=== PATIENT | male | born 1995 | race Hispanic/Latino ===

== ENCOUNTER 2024-07-27 15:48 | Emergency (ER) | payer SELFPAY ==
[~2024-07-27] VITALS: Ht 165.1 cm; Wt 47.6 kg
[2024-07-27] MEDS ORDERED: KETOROLAC TROMETHAMINE 30 MG/ML SDV IM ONE (16:25)
[2024-07-27 16:40] LABS: BASO% 0.2 % (0-3); EOS% 0.1 % (0-8); HEMATOCRIT 45.5 % (39.0-50.0); HEMOGLOBIN 16.2 g/dl (14.0-18.0); IMMATURE GRANULOCYTES 0.1 % (0.0-5.0); MEAN CELL VOLUME 84.7 fL CALC (80.0-100.0); MEAN CORPUSCULAR HGB 30.2 pG CALC (26.0-32.0); MEAN CORPUSCULAR HGB CONC 35.6 g/dL CAL (32.0-36.0); MONO% 11.6 % (2-13); NEUT# 6.09 thou/uL (1.82-7.42); RED BLOOD COUNT 5.37 mill/uL (4.70-6.10); RED CELL DISTRI WIDTH 11.7 % (11.5-15.5)
[2024-07-27 16:55] LABS: ANION GAP 17 (6-22 (CALC)); BUN 12 mg/dL (9-20); BUN/CREATININE RATIO 14 (12-20 (CALC)); CARBON DIOXIDE 24 mmol/l (22-30); CHLORIDE 94 mmol/l (95-108); CREATININE 0.9 mg/dL (0.7-1.3); ESTIMATED GFR 119 ML/MIN (>=90 (CALC)); POTASSIUM 3.1 mmol/l (3.5-5.1); SODIUM 132 mmol/l (137-146)
[2024-07-27] MEDS ORDERED: POTASSIUM CHLORIDE 20 MEQ/TAB PO ONE (17:10)
[2024-07-27] MEDS ORDERED: POTASSIUM CHLORIDE 20 MEQ/PKT POWDER PO ONE (17:40)
[2024-07-27] MEDS ORDERED: K-TAB20 MEQ PO (17:42)
[2024-07-27] MEDS ORDERED: ZPAK PO (17:42)
[2024-07-27 17:49] VITALS: BP 114/72
[2024-07-27 18:00] VITALS: BP 106/64
[2024-07-27 18:01] VITALS: BP 114/72
== END 2024-07-27 18:05 | disposition home or self-care (01) | DRG 153 ==
LOC: ED 15:48
PROVIDERS: Family Medicine
DX: J06.9 Acute upper respiratory infection, unspecified (principal); E87.6 Hypokalemia; Z20.822 Contact with and (suspected) exposure to COVID-19

== ENCOUNTER 2024-10-27 09:49 | Emergency (ER) | payer SELFPAY ==
[~2024-10-27] VITALS: Ht 165.1 cm; Wt 65.0 kg
[~2024-10-27 09:49] MED LIST: K-TAB20 MEQ PO; ZPAK PO
[2024-10-27 09:58] VITALS: BP 126/76
[2024-10-27 10:30] VITALS: BP 115/72
[2024-10-27] MEDS ORDERED: Pantoprazole Sodium 40 MG VIAL (Protonix) IV STA (10:46)
[2024-10-27] MEDS ORDERED: SODIUM CHLORIDE 0.9% 1,000 ML IV STA (10:46)
[2024-10-27] MEDS ORDERED: KETOROLAC TROMETHAMINE 30 MG/ML SDV IV STA (10:46)
[2024-10-27] MEDS ORDERED: PROMETHAZINE HCL 25 MG/ML AMP IV STA (10:46)
[2024-10-27] MEDS ORDERED: ONDANSETRON HCl 4 MG/2 ML SDV IV ONE (10:55)
[2024-10-27 11:16] LABS: BASO% 0.1 % (0-3); HEMOGLOBIN 15.8 g/dl (14.0-18.0); IMMATURE GRANULOCYTES 0.2 % (0.0-5.0); LYMPH% 7.7 % (15-41); MEAN CORPUSCULAR HGB 30.6 pG CALC (26.0-32.0); MEAN CORPUSCULAR HGB CONC 34.3 g/dL CAL (32.0-36.0); MONO% 6.9 % (2-13); NEUT# 13.09 thou/uL (1.82-7.42); NEUT% 85.1 % (42-76); RED BLOOD COUNT 5.17 mill/uL (4.70-6.10); RED CELL DISTRI WIDTH 12.2 % (11.5-15.5)
[2024-10-27 11:27] LABS: ALBUMIN 4.3 g/dL (3.2-5.0); BILIRUBIN, TOTAL 0.8 mg/dL (0.2-1.3); CREATININE 0.7 mg/dL (0.7-1.3); TOTAL PROTEIN 7.4 g/dL (6.3-8.2)
[2024-10-27 11:28] LABS: POTASSIUM 4.3 mmol/l (3.5-5.1)
[2024-10-27 15:07] LABS: URINE BILIRUBIN - DIPSTICK Negative (NEGATIVE); URINE BLOOD DIPSTICK Negative (NEGATIVE); URINE GLUCOSE - DIPSTICK Negative (NEGATIVE); URINE KETONE Negative (NEGATIVE); URINE LEUK ESTERASE Negative (NEGATIVE); URINE NITRITE - DIPSTICK Negative (Negative); URINE PROTEIN - DIPSTICK Negative (NEG-TRACE); URINE UROBILINOGEN - DIPSTICK 0.2 E.U./dL (0.2)
[2024-10-27 15:09] LABS: URINE COLOR Yellow
[2024-10-27] MEDS ORDERED: ZOFRAN4 MG/TAB PO (15:22)
[2024-10-27 15:29] VITALS: BP 115/72
== END 2024-10-27 15:45 | disposition home or self-care (01) | DRG 392 ==
LOC: ED 09:49
PROVIDERS: Emergency Medicine
DX: R11.2 Nausea with vomiting, unspecified (principal); F12.90 Cannabis use, unspecified, uncomplicated; Z20.822 Contact with and (suspected) exposure to COVID-19
CPT/HCPCS: J2405; J2470